=== PATIENT | female | born 1975 | race Caucasian/White ===

== ENCOUNTER → 2016-03-09 | Outpatient (CLI) | payer OTHER ==
--- NOTE | 2016-03-09 13:52 | MR ---
MRI Lumbar Spine Without Contrast History: Anesthesia of skin. Decreased sensation along left L5 distribution on the right with foot dr op. ICD-10 code R20.0. Technique: MRI was performed of the lumbar spine using a 3 [employer] MRI system. Sagittal and axial imagi ng was obtained with standard imaging sequences. Findings: There is slight anterior wedge compression deformity of the T12 vertebral body with a chron ic appearance involving the superior endplate anteriorly. Degenerative endplate change and anterior a nd lateral osteophytosis are seen at T11-T12. There is disk desiccation at L4-L5 and L5-S1. No signif icant spondylolisthesis. Conus is visualized at T12-L1 and is unremarkable. 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 This is a little mo re predominant on the right. It would be difficult to exclude a component of hydronephrosis on the ri ght. T12-L1 level is unremarkable. L1-L2 level is unremarkable. L2-L3 level demonstrates a slight broad-based annular bulge causing no significant encroachment. L3-L4 level demonstrates a slight underlying broad-based annular bulge. There is a small central prot rusion mildly effacing the anterior thecal sac. L4-L5 level demonstrates a mild broad-based annular bulge. There is a small central protrusion and an nular tear mildly effacing the anterior thecal sac. This is slightly asymmetric to the right causing minimal right lateral recess narrowing. There is minimal bilateral neural foraminal narrowing. L5-S1 level demonstrates a right parasagittal protrusion and annular tear just touching the right S1 nerve root at the lateral recess. No significant neural foraminal encroachment. Impression: 1. 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 There is a s mall posterior lateral protrusion and annular tear at L4-L5 and L5-S1, as above. 2. Slight chronic anterior wedge compression deformity of T12 vertebral body. 3. 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 Consider ultrasound for further evaluation.
== END ==
LOC: FIMAGING 08:30
PROVIDERS: ATTEND Family Medicine
DX: M51.36 Other intervertebral disc degeneration, lumbar region (principal); M47.896 Other spondylosis, lumbar region; M51.86 Other intervertebral disc disorders, lumbar region; M51.87 Other intervertebral disc disorders, lumbosacral region; M21.371 Foot drop, right foot; S22.080A Wedge compression fracture of T11-T12 vertebra, initial encounter for closed fracture

== ENCOUNTER → 2016-09-16 | Outpatient (CLI) | payer OTHER | LOC: BMCIMAGING 10:22 | PROVIDERS: ATTEND Family Medicine | DX: R10.31 Right lower quadrant pain (principal); N83.202 Unspecified ovarian cyst, left side; N28.89 Other specified disorders of kidney and ureter ==

== ENCOUNTER → 2018-07-14 | Outpatient (CLI) | payer OTHER | LOC: FIMAGING 13:07 | PROVIDERS: ATTEND Midwife | DX: N92.6 Irregular menstruation, unspecified (principal) ==